=== PATIENT | female | born 1990 | race American Indian/Alaskan Native ===

== ENCOUNTER 2018-12-04 22:08 | Emergency (ER) | payer SELFPAY ==
--- NOTE | 2018-12-04 22:25 | Emergency Department Report ---
Blank Doc - Documentation Documentation: This is a 27-year-old female that presents with boil to left breast area. Den ies any pus or drainage noted. Denies fever. This initial assessment diagnostic orders/clinical plan/treatment(s) is/are subject to change based on patient's health status, clinical progression and re- assessment by fellow clinical providers in the ED. Further treatment and workup at subsequent clinical providers discretion. Patient/guardians urged not to elope from ED s their condition may be serious if not clinically assessed and managed. Initial orders include: 1-Patient sent to MAIN for further evaluation and treatment
[2018-12-04 22:27] VITALS: BP 115/61
[2018-12-05] MEDS ORDERED: TORADOL ONE (00:01)
[2018-12-05] MEDS ORDERED: TORADOL IM ONE (00:06)
--- NOTE | 2018-12-05 00:28 | Emergency Department Report ---
Abscess Boil HPI - HPI Chief Complaint: Skin/Abscess/Foreign Body Stated Complaint: ABSCESS IN LEFT NIPPLE AREA Time Seen by Provider: 12/04/18 22:24 Duration: >1 Week (2 weeks) Location: Other (left breast) Severity: Severe History: Yes Pain, No Fever, No Purulent Drainage, No Numbness, No Foreign Body, No Previous History, No Insect Bite HPI: This is a 27-year-old -[place] female who presents with an abscess to the left breast nipple for 2 weeks. Patient states she changed her nipple piercing a few weeks ago and thinks it was real gold. She started having discomfort and swelling around the area shortly after. She was applying warm compresses and coconut oil with no improvement of symptoms. Patient states swelling increased over the past 5 days. She reports pain is 10 out of 10 on pain scale. Home Medications: Previous Rx's Medication Instructions Recorded Last Taken Type Acetaminophen/Codeine [Tylenol 1 tab PO Q6H PRN #12 tab 12/05/18 Unknown Rx /Codeine # 3 tab] Clindamycin [Clindamycin CAP] 300 mg PO Q8H #30 cap 12/05/18 Unknown Rx Allergies/Adverse Reactions: Allergies Allergy/AdvReac Type Severity Reaction Status Date / Time No Known Allergies Allergy Verified 12/05/18 00:13 ED Review of Systems ROS: Stated complaint: ABSCESS IN LEFT NIPPLE AREA Other details as noted in HPI Constitutional: denies: chills, fever Respiratory: denies: cough, shortness of breath, wheezing Cardiovascular: denies: chest pain, palpitations Gastrointestinal: denies: abdominal pain, nausea, diarrhea Skin: lesions (abscess left breast nipple). denies: rash Neurological: denies: headache, weakness, paresthesias Psychiatric: denies: anxiety, depression ED Past Medical Hx - Past Medical History Previous Medical History?: No - Surgical History Additional Surgical History: C-sections X3 - Social History Smoking Status: Current Every Day Smoker Substance Use Type: None - Medications Home Medications: Home Medications Medication Instructions Recorded Confirmed Last Taken Type Acetaminophen/Codeine [Tylenol 1 tab PO Q6H PRN #12 tab 12/05/18 Unknown Rx /Codeine # 3 tab] Clindamycin [Clindamycin CAP] 300 mg PO Q8H #30 cap 12/05/18 Unknown Rx ED Abscess Boil Physical Exam - Exam General: Vital signs noted. No distress. Alert and acting appropriately. Front/Back of Body, Lg (Color): 1 - 3 cm non-fluctuant nodule at 3 o'clock to the left areola, tenderness and erythema, no drainage Size: 3 cm Exam: Yes Tenderness, Yes Fluctuance, Yes Normal Neurologic Exam, Yes Normal Circulation, No Surrounding Cellulites/Erythema, No Lymphangitis, No Crepitation, No Heart Murmur ED Course Vital Signs 12/04/18 22:24 Temperature 98.1 F Pulse Rate 78 Respiratory 18 Rate Blood Pressure 115/61 O2 Sat by Pulse 97 Oximetry Critical care attestation.: If time is entered above; I have spent that time in minutes in the direct care of this critically ill patient, excluding procedure time. ED Medical Decision Making - Medical Decision Making This is a 27 y.o. female that presents with a painful abscess to left areola for 2 weeks. No history of prior abscess. Patient is stable and examined by me. No acute signs of distress noted. Physical assessment of 3 cm non-fluctuant nodule, erythema, and tender at 3 o'clock of left areola. Given Toradol 30 mg po once in ER. I&D not indicated. IV site initiated and given clindamycin 900 mg IV. Referral to general surgery for aspiration. Start clindamycin 300 mg by mouth every 8 hours 10 days, #30. Instructed to continue warm compresses to aid in drainage. Follow-up with general surgeon in 24-48 hours. Patient agrees to ED plan of care. ED Disposition Clinical Impression: Left breast abscess Disposition: DC- TO HOME OR SELFCARE Is pt being admited?: No Does the pt Need Aspirin: No Condition: Stable Instructions: Abscess (ED) Additional Instructions: Follow-up with general surgeon and 24-48 hours. Continue to apply warm compresses to aid in drainage. Start taking antibiotics as prescribed every 8 hours. Return to the emergency room if increased swelling, increased pain, purulent discharge with foul odor, or fever. Prescriptions: Acetaminophen/Codeine [Tylenol /Codeine # 3 tab] 1 tab PO Q6H PRN #12 tab PRN Reason: Pain , Severe (7-10) Clindamycin [Clindamycin CAP] 300 mg PO Q8H #30 cap Referrals: HENOK LUU MD [Primary Care Provider] - 3-5 Days TORSTEN BURNHAM MD [Staff Physician] - 3-5 Days [facility] [Outside] - 3-5 Days Forms: Work/School Release Form(ED) Time of Disposition: 02:00
[2018-12-05] MEDS ORDERED: CLEOCIN 900 MG/50 mL 900 MG/50 ML BAG IV ONE (00:29)
== END 2018-12-05 02:08 | disposition home or self-care (01) ==
LOC: ED 22:08
DX: N61.1 Abscess of the breast and nipple (principal)
CPT/HCPCS: 96365; 96372; 99282; J1885